=== PATIENT | male | born 1970 | race Caucasian/White ===

== ENCOUNTER 2019-08-04 14:38 | Inpatient (IN) | payer OTHER ==
[~2019-08-04] VITALS: Ht 188 cm; Wt 141.9 kg
[~2019-08-04 14:38] MED LIST: ACET325 PO; ALBU3IS INH; AZIT250 PO; AZIT500 PO; B-1100 MG PO; CEPH500 PO; DILT60 PO; DULERA 200 MCG/13 GM INH; FLUSAL2505 INH; FLUT44OIA INH; FOLI1 PO; FURO40 PO; LORA10 PO; Lisinopril2.5 MG PO; MULVITMIND PO; NAPR220 PO; OXYACE5T PO; PRED20 PO; PROAIR RESPICL90 MCG IH; RXCEPH500 PO; RXOXYACE PO; Ventolin Soln3 ML INH; [UNRECOGNIZED DRUG - REMARK]
[2019-08-04] MEDS ORDERED: MOME220I INH (15:18)
[2019-08-04] MEDS ORDERED: CYCL10 PO (15:18)
[2019-08-04] MEDS ORDERED: TRAM50 PO (15:19)
[2019-08-04 15:25] LABS: BASOPHILS ABSOLUTE AUTO 0.06 K/mm3 (0.00-0.23); BASOPHILS PERCENT AUTO 0 % (0-2); EOSINOPHILS ABSOLUTE AUTO 0.01 K/mm3 (0.00-0.68); EOSINOPHILS PERCENT AUTO 0 % (0-6); Hematocrit 52.5 % (37.0-53.0); Hemoglobin 17.2 g/dL (13.5-17.5); IMMATURE GRAN ABSOLUTE AUTO 0.05 K/mm3 (0.00-0.10); IMMATURE GRAN PERCENT AUTO 0 % (0-1); LYMPHOCYTES ABSOLUTE AUTO 0.85 K/mm3 (0.84-5.20); LYMPHOCYTES PERCENT AUTO 6 % (21-46); MONOCYTES ABSOLUTE AUTO 1.06 K/mm3 (0.16-1.47); MONOCYTES PERCENT AUTO 8 % (4-13); Mean Corpuscular HGB 30.9 pg (26.0-34.0); Mean Corpuscular HGB Conc 32.8 g/dL (31.5-36.5); Mean Corpuscular Volume 94 fL (80-100); Mean Platelet Volume 11.2 fL (9.1-12.4); NEUTROPHILS ABSOLUTE AUTO 11.61 K/mm3 (1.96-9.15); NEUTROPHILS PERCENT AUTO 85 % (41-73); Platelet Count 187 K/mm3 (150-400); RDW Coefficient Variation 13.8 % (11.7-14.2); RDW Standard Deviation 48.3 fL (35.1-46.3); Red Blood Cell Count 5.56 M/mm3 (4.30-5.90); White Blood Cell Count 13.64 K/mm3 (4.00-11.30)
[2019-08-04 15:44] LABS: Alanine Aminotransfer (ALT/SGP 71 U/L (12-78); Albumin, Blood 3.8 g/dL (3.4-5.0); Albumin/Globulin Ratio 1.1 (0.8-1.8); Alk Phos 67 U/L (50-136); Anion Gap 6 mmol/L (6-16); Aspartate Aminotrans (AST/SGOT 52 U/L (12-37); Blood Urea Nitrogen 13 mg/dL (8-24); Bun/Creatinine Ratio 12.3 (12.0-20.0); CO2, Blood 27 mmol/L (21-32); Calcium, Blood 8.8 mg/dL (8.5-10.1); Chloride, Blood 104 mmol/L (98-108); Creatinine, Blood 1.06 mg/dL (0.60-1.20); Globulin, Blood 3.5 g/dL (2.2-4.0); Glomerular Filtration Rate >60 (60-); Glucose, Blood 114 mg/dL (70-99); Potassium, Blood 4.2 mmol/L (3.5-5.5); Sodium, Blood 137 mmol/L (136-145); Total Protein, Blood 7.3 g/dL (6.4-8.2)
[2019-08-04 16:41] LABS: Influenza A Negative (NEGATIVE); Influenza B Negative (NEGATIVE)
[2019-08-04] MEDS ORDERED: MONT10T PO (16:57)
[2019-08-04] MEDS ORDERED: METAXALONE800 M1 PO (16:58)
[2019-08-04 17:29] LABS: International Normalized Ratio 1.05; Prothrombin Time Results 11.2 Sec (9.7-11.5)
--- NOTE | 2019-08-04 18:22 | NUR ---
PT ARRIVED TO ROOM FROM ER VIA STRETCHER. SPOUSE WILL GO HOME TO BRING PTS OWN BIPAP. PT A&O, HR 151 AFLUTTER RVR, OTHER VSS. PT SITTING UP AT EDGE OF BED. LS CLEAR T/O, BTX4. VISITORS AT BEDSIDE. PT IS DIRECTOR MBA BODY TYPE, LARGE RED ARM CUFF USED ON RT FOREARM FOR BP. WILL ADD ANOTHER PUMP FOR NS PSH THROUGH ON CARD GTT. WILL MONITOR AND REPORT TO RUBBER ROLLER GRINDER OPERATOR.
--- NOTE | 2019-08-04 20:00 | NUR ---
ASSUMPTION OF CARE: PT A&O. IN CHAIR AT BEGINNING OF SHIFT. BP STABLE IN THE 110S, HR IN THE 150S. IN AFLUTTER W/RVR. LUNG SOUNDS CLEAR, PT HAS OCC NON PRODUCTIVE COUGH. ON DILT DRIP AT 20MG. HEPARIN AT 13U/KG/HR. PT IS 107KG. POSS CARDIOVERSION IN AM
[2019-08-05 03:28] LABS: Hematocrit 51.1 % (37.0-53.0); Hemoglobin 16.7 g/dL (13.5-17.5); Mean Corpuscular HGB 30.8 pg (26.0-34.0); Mean Corpuscular HGB Conc 32.7 g/dL (31.5-36.5); Mean Corpuscular Volume 94 fL (80-100); Mean Platelet Volume 11.3 fL (9.1-12.4); Platelet Count 167 K/mm3 (150-400); RDW Coefficient Variation 13.9 % (11.7-14.2); RDW Standard Deviation 47.9 fL (35.1-46.3); Red Blood Cell Count 5.42 M/mm3 (4.30-5.90); White Blood Cell Count 12.01 K/mm3 (4.00-11.30)
[2019-08-05 03:52] LABS: Alanine Aminotransfer (ALT/SGP 69 U/L (12-78); Anion Gap 8 mmol/L (6-16); Aspartate Aminotrans (AST/SGOT 53 U/L (12-37); Blood Urea Nitrogen 16 mg/dL (8-24); CO2, Blood 26 mmol/L (21-32); Calcium, Blood 8.4 mg/dL (8.5-10.1); Chloride, Blood 102 mmol/L (98-108); Creatinine, Blood 1.07 mg/dL (0.60-1.20); Glomerular Filtration Rate >60 (60-); Glucose, Blood 109 mg/dL (70-99); Sodium, Blood 136 mmol/L (136-145)
--- NOTE | 2019-08-05 05:10 | NUR ---
SHIFT SUMMARY: PT REMAINS IN AFLUTTER. SBP STABLE. HR AFTER 2ND DOSE OF DIG HR IN LOW 90S. LUNG SOUNDS CLEAR. PT STILL COMPLAINS OF OCC COUGH. PT USING HOME BIPAP. 20G IN R WRIST INF. 18G IN LFA PT PULLED SO A 20G WAS PLACED. CURRENTLY INF. DILT RUNNING AT 15 AND NS TKO INF INTO LFA. HEP AT 15U INF INTO RWRIST. PT CURRENTLY IN BED RESTING COMFORTABLY. BED IN LOWEST POSITION. CALL LIGHT IN REACH. WILL PASS ON REPORT TO ON COMING SHIFT.
--- NOTE | 2019-08-05 07:17 | NUR ---
ASSUMED CARE: PT SITTING UPRIGHT AT SIDE OF BED. CARDIZEM GTT AT 15 MG/HR. AFLUTTER 1TEENS AT THIS TIME. DENIES NEEDS OR CONCERNS.
--- NOTE | 2019-08-05 19:22 | NUR ---
SHIFT SUMMARY: PT CURRENTLY AFLUTTER IN LOW 100S. DENIES CP OR SOB. STATES ANY SOB HE FEELS HE THINKS IS RELATED TO BRONCHITIS. PLAN IS FOR NPO AT [place] FOR POSSIBLE GODFREY IN AM WITH ANESTHESIA ASSISTANCE. NIGHT RN AWARE
[2019-08-06 05:52] LABS: Anion Gap 7 mmol/L (6-16); Blood Urea Nitrogen 17 mg/dL (8-24); Bun/Creatinine Ratio 15.7 (12.0-20.0); CO2, Blood 27 mmol/L (21-32); Calcium, Blood 8.6 mg/dL (8.5-10.1); Chloride, Blood 102 mmol/L (98-108); Creatinine, Blood 1.08 mg/dL (0.60-1.20); Digoxin (Lanoxin) 0.39 ug/mL (0.80-2.00); Glomerular Filtration Rate >60 (60-); Glucose, Blood 104 mg/dL (70-99); Potassium, Blood 4.2 mmol/L (3.5-5.5); Sodium, Blood 136 mmol/L (136-145)
--- NOTE | 2019-08-06 06:18 | NUR ---
PCU NOC SHIFT SUMMARY PATIENT ALERT AND ORIENTED X4 T/O SHIFT. PATIENT REMAINS IN A FLUTTER T/O SHIFT WITH RATE 90-110 - PATIENT DENIES ANY CHEST PAIN OR PRESSURE T/O SHIFT - HEART SOUNDS IRREGULAR - CARDIEZEM GTT REMAINS RUNNING AT 10 ML/HR T/O SHIFT. PATIENT ON ROOM AIR AND USED CPAP WHILE SLEEPING (PATIENT HAS CENTRAL AND OBSTRUCTIVE APNEA). PATIENT HAS BRONCHITIS BEING TREATED WITH ANTIBIOTICS PER EMAR AND ALSO HAS A CARDIOLOGY CONSULT FOR A FLUTTER TREATMENT - POSSIBLE GODFREY THIS AM. PATIENT KEPT NPO SINCE MIDNIGHT. PATIENT SLEPT WELL T/O SHIFT. HEPARIN GTT TITRATED X2 THIS SHIFT PER PHARMACY VIA EMAR. PATIENT PERFERS B/P ON RIGHT FOREARM. NO ACUTE FINDINGS THIS SHIFT, VSS. CALL LIGHT W/I REACH. WILL CONTINUE TO MONITOR AND GIVE REPORT TO DAYSHIFT RN.
--- NOTE | 2019-08-06 07:24 | NUR ---
ASSUMED CARE: PT RESTING QUIETLY IN BED AT THIS TIME. CARDIZEM GTT AT 10MG/HR. HEPARIN GTT RUNNING. NPO SINCE [place]. FAMILY AT BEDSIDE. NO ACUTE NEEDS
--- NOTE | 2019-08-06 10:24 | NUR ---
PT TAKEN TO HEART CENTER VIA WHEEL CHAIR BY STAFF AT THIS TIME.
--- NOTE | 2019-08-06 12:15 | NUR ---
PT RETURNED FROM HEART CENTER. CURRENT RYTHM IS NORMAL SINUS. EKG COMPLETED IN HEART CENTER. CARDIZEM AND HEPARIN GTTS IN PLACE.
--- NOTE | 2019-08-06 18:35 | NUR ---
SHIFT SUMMARY: PT'S HR IN 80S TO 90S NSR AFTER CARDIOVERSION. HAS BEEN ASYMPTOMATIC. CARDIZEM OFF. HAS BEEN RESTING ON CPAP THIS AFTERNOON. FAMILY AT BEDSIDE. NO ACUTE NEEDS OR CONCERNS. PLAN FOR LIFE VEST PRIOR TO DC. LIFE VEST CAME TO SEE IF VEST FIT PT THIS SHIFT.
--- NOTE | 2019-08-07 06:34 | NUR ---
PCU NOC SHIFT SUMMARY PATIENT INDEPENDENT IN ROOM. PATIENT REMAINS ALERT AND ORIENTED X4 T/O SHIFT. PATIENTS HEART RATE NSR IN THE 70-90'S T/O SHIFT - NO EVENS NOTED PER CONSTRUCTION ENGINEERING MANAGER. SPOKE WITH PROVIDER FRANNIE WHO D/C'D PATIENTS HEPARIN AND STARTED HIM ON XARELTO. PATIENT HAS CONTINUOUS COUGH WITH STRINGY SPUTUM PRODUCED. PATIENT ON ROOM AIR; LUNG SOUNDS COARSE TO CLEAR. PATIENT DENIES ANY NEEDS, UP IN THE SHOWER AT THIS TIME. WILL CONTINUE TO MONITOR AND REPORT TO DAYSHIFT RN.
--- NOTE | 2019-08-07 07:17 | NUR ---
ASSUMED CARE: PT UP AND WALKING, TELE SHOWS NSR IN S. STATES HE HAS BEEN COUGHING BLOOD STREAKED SPUTUM. WILL DISCUSS WITH MD. NO FURTHER NEEDS OR CONCERNS.
--- NOTE | 2019-08-07 18:40 | NUR ---
SHIFT SUMMARY: ANA AND RACHEL FROM [employer] HAVE BEEN WORKING ON GETTING INSURANCE APPROVAL FOR PT. CALL RECIEVED THAT PT HAS BEEN APPROVED. DR KATHLEEN AND DR GRIFFIN AWARE. DR KATHLEEN STARTED PT ON ENTERESTO AND METOPROLOL THIS SHIFT AND WANTS TO MONITOR PT OVER NIGHT. FAMILY AWARE AND AGREEABLE. PT HAS REMAINED NSR THIS SHIFT. AMBULATORY IN [place]. VISITORS AT BEDSIDE MOST OF SHIFT.
--- NOTE | 2019-08-08 05:44 | NUR ---
END OF SHIFT SUMMARY NOP ACUTE CHANGES THIS SHIFT. CONTINUES TO DEN Y CP. REMAINS SR. INT HTN, MEDS PER EMAR. PT HAS BEEN WEARING CPAP ALL NIGHT AND HAS BEEN GETTING UP PERIODICALLY TO VOID OR COMPLETE OTHER NEEDS. WILL CONTINUE TO MONITOR UNTIL SHIFT CHANGE.
[2019-08-08 10:18] LABS: Anion Gap 4 mmol/L (6-16); Blood Urea Nitrogen 15 mg/dL (8-24); Bun/Creatinine Ratio 16.9 (12.0-20.0); CO2, Blood 28 mmol/L (21-32); Calcium, Blood 8.9 mg/dL (8.5-10.1); Chloride, Blood 104 mmol/L (98-108); Creatinine, Blood 0.89 mg/dL (0.60-1.20); Glomerular Filtration Rate >60 (60-); Glucose, Blood 125 mg/dL (70-99); Magnesium, Blood 2.2 mg/dL (1.6-2.4); Potassium, Blood 4.3 mmol/L (3.5-5.5); Sodium, Blood 136 mmol/L (136-145)
--- NOTE | 2019-08-08 11:09 | NUR ---
DISCHARGE ANA JOY WAS ABLE TO SUPPLY SAMPLES OF ENTRESTO AND XARELTO FOR THE PT. DR GRIFFIN CALLED FOR DISCHARGE ORDERS. CONTINUE POT.
[2019-08-08] MEDS ORDERED: TORSE20 PO (12:31)
[2019-08-08] MEDS ORDERED: METO25ER PO (12:31)
[2019-08-08] MEDS ORDERED: BENZ100A PO (12:31)
[2019-08-08] MEDS ORDERED: XARELTO20 MG PO (12:32)
[2019-08-08] MEDS ORDERED: ENTRESTO 24 MG1 EACH PO (12:32)
[2019-08-08] MEDS ORDERED: SPIR25 PO (12:33)
--- NOTE | 2019-08-08 13:13 | NUR ---
dischaRGE HOME pT DISCHARGE HOME. SAMPLES GIVEN TO PT. PT REFGUSED W/C OUT. CONTINUE POT.
== END 2019-08-08 13:13 | disposition home or self-care (01) | DRG 308 ==
LOC: ER 14:38 → PCU 14:39
PROVIDERS: Internal Medicine Cardiovascular Disease; Physician Assistant; ADMIT Internal Medicine
PROC: 5A2204Z Restoration of Cardiac Rhythm, Single (ICD-10-PCS; principal; 2019-08-06)
PROC: B24BZZ4 Ultrasonography of Heart with Aorta, Transesophageal (ICD-10-PCS; 2019-08-06)
DX: I48.92 Unspecified atrial flutter (principal); I50.43 Acute on chronic combined systolic (congestive) and diastolic (congestive) heart failure; J45.909 Unspecified asthma, uncomplicated; G47.33 Obstructive sleep apnea (adult) (pediatric); I42.0 Dilated cardiomyopathy; I27.20 Pulmonary hypertension, unspecified; Z68.38 Body mass index [BMI] 38.0-38.9, adult; I11.0 Hypertensive heart disease with heart failure; E66.01 Morbid (severe) obesity due to excess calories
CPT/HCPCS: 36415; 71045; 71046; 80048; 80053; 80162; 83735; 83880; 84145; 84443; 84450; 84460; 84484; 85025; 85027; 85610; 85730; 87804; 92960; 93005; 93010; 93308; 93312; 93321; 93325; 94640; 94760; 94762; 96365; 96366; 96367; 96375; 96376; 99285-25; A9270; J1160; J1644; J1940; J2250; J2704; J7030; J7050

== ENCOUNTER 2019-10-13 17:50 | Emergency (ER) | payer OTHER ==
[~2019-10-13] VITALS: Ht 188 cm; Wt 136.1 kg
[~2019-10-13 17:50] MED LIST changes: +BENZ100A PO; +CYCL10 PO; +ENTRESTO 24 MG1 EACH PO; +METAXALONE800 M1 PO; +METO25ER PO; +MOME220I INH; +MONT10T PO; +SPIR25 PO; +TORSE20 PO; +TRAM50 PO; +XARELTO20 MG PO
[2019-10-13 18:50] LABS: BASOPHILS ABSOLUTE AUTO 0.06 K/mm3 (0.00-0.23); BASOPHILS PERCENT AUTO 1 % (0-2); EOSINOPHILS ABSOLUTE AUTO 0.31 K/mm3 (0.00-0.68); EOSINOPHILS PERCENT AUTO 4 % (0-6); Hematocrit 40.5 % (37.0-53.0); Hemoglobin 13.9 g/dL (13.5-17.5); IMMATURE GRAN ABSOLUTE AUTO 0.03 K/mm3 (0.00-0.10); IMMATURE GRAN PERCENT AUTO 0 % (0-1); LYMPHOCYTES PERCENT AUTO 23 % (21-46); MONOCYTES ABSOLUTE AUTO 0.79 K/mm3 (0.16-1.47); MONOCYTES PERCENT AUTO 10 % (4-13); Mean Corpuscular HGB 29.2 pg (26.0-34.0); Mean Corpuscular HGB Conc 34.3 g/dL (31.5-36.5); Mean Corpuscular Volume 85 fL (80-100); Mean Platelet Volume 10.4 fL (9.1-12.4); NEUTROPHILS ABSOLUTE AUTO 5.25 K/mm3 (1.96-9.15); NEUTROPHILS PERCENT AUTO 63 % (41-73); Platelet Count 175 K/mm3 (150-400); RDW Coefficient Variation 13.1 % (11.7-14.2); RDW Standard Deviation 40.2 fL (35.1-46.3); Red Blood Cell Count 4.76 M/mm3 (4.30-5.90); White Blood Cell Count 8.34 K/mm3 (4.00-11.30)
[2019-10-13 19:05] LABS: International Normalized Ratio 1.08; Prothrombin Time Results 11.5 Sec (9.7-11.5)
[2019-10-13 19:16] LABS: Alanine Aminotransfer (ALT/SGP 115 U/L (12-78); Albumin, Blood 4.1 g/dL (3.4-5.0); Albumin/Globulin Ratio 1.3 (0.8-1.8); Alk Phos 67 U/L (50-136); Anion Gap 4 mmol/L (6-16); Aspartate Aminotrans (AST/SGOT 114 U/L (12-37); Bilirubin, Total 0.3 mg/dL (0.1-1.0); Blood Urea Nitrogen 26 mg/dL (8-24); Bun/Creatinine Ratio 27.7 (12.0-20.0); CO2, Blood 29 mmol/L (21-32); Calcium, Blood 9.1 mg/dL (8.5-10.1); Chloride, Blood 104 mmol/L (98-108); Creatinine, Blood 0.94 mg/dL (0.60-1.20); Globulin, Blood 3.2 g/dL (2.2-4.0); Glomerular Filtration Rate >60 (60-); Glucose, Blood 95 mg/dL (70-99); Potassium, Blood 4.2 mmol/L (3.5-5.5); Sodium, Blood 137 mmol/L (136-145); Total Protein, Blood 7.3 g/dL (6.4-8.2)
== END 2019-10-13 20:55 | disposition home or self-care (01) ==
LOC: ER 17:50
PROVIDERS: Nurse Practitioner
DX: S70.11XA Contusion of right thigh, initial encounter (principal); J45.909 Unspecified asthma, uncomplicated; I50.9 Heart failure, unspecified; Z23 Encounter for immunization; Z79.899 Other long term (current) drug therapy; Z87.01 Personal history of pneumonia (recurrent); V18.0XXA Pedal cycle driver injured in noncollision transport accident in nontraffic accident, initial encounter
CPT/HCPCS: 36415; 76882; 80053; 85025; 85610; 90471; 90714; 99283-25

== ENCOUNTER 2023-09-04 01:51 | Day surgery (SDC) | payer OTHER ==
[2023-09-04 09:40] VITALS: BP 138/93
[2023-09-04 11:20] LABS: BASOPHILS ABSOLUTE AUTO 0.06 K/mm3 (0.00-0.23); BASOPHILS PERCENT AUTO 1 % (0-2); EOSINOPHILS ABSOLUTE AUTO 0.29 K/mm3 (0.00-0.68); EOSINOPHILS PERCENT AUTO 3 % (0-6); IMMATURE GRAN ABSOLUTE AUTO 0.13 K/mm3 (0.00-0.10); IMMATURE GRAN PERCENT AUTO 1 % (0-1); LYMPHOCYTES ABSOLUTE AUTO 1.68 K/mm3 (0.84-5.20); LYMPHOCYTES PERCENT AUTO 18 % (21-46); MONOCYTES ABSOLUTE AUTO 0.51 K/mm3 (0.16-1.47); MONOCYTES PERCENT AUTO 5 % (4-13); Mean Corpuscular HGB 26.3 pg (26.0-34.0); Mean Corpuscular HGB Conc 32.3 g/dL (31.5-36.5); Mean Corpuscular Volume 82 fL (80-100); Mean Platelet Volume 9.8 fL (9.1-12.4); NEUTROPHILS ABSOLUTE AUTO 6.86 K/mm3 (1.96-9.15); NEUTROPHILS PERCENT AUTO 72 % (41-73); Platelet Count 323 K/mm3 (150-400); RDW Coefficient Variation 14.7 % (11.7-14.2); RDW Standard Deviation 42.1 fL (35.1-46.3); White Blood Cell Count 9.53 K/mm3 (4.00-11.30)
[2023-09-04 11:43] LABS: Albumin, Blood 3.9 g/dL (3.4-5.0); Bilirubin, Total 0.4 mg/dL (0.1-1.0); Bun/Creatinine Ratio 18.3 (12.0-20.0); C-REACTIVE PROTEIN, EXT RANGE 1.03 mg/dL (0.000-0.300); Calcium, Blood 9.2 mg/dL (8.5-10.1); Creatinine, Blood 1.09 mg/dL (0.60-1.20); Globulin, Blood 3.8 g/dL (2.2-4.0); Potassium, Blood 3.9 mmol/L (3.5-5.5); Total Protein, Blood 7.7 g/dL (6.4-8.2)
--- NOTE | 2023-09-04 14:31 | NUR ---
LABS FAXED TO [facility] AND ORDERING PHYSICIAN'S OFFICE.
== END 2023-09-04 09:57 | disposition home or self-care (01) ==
LOC: ATC 01:51
DX: T81.49XA Infection following a procedure, other surgical site, initial encounter (principal); M43.22 Fusion of spine, cervical region; Z79.899 Other long term (current) drug therapy
CPT/HCPCS: 36592; 80053; 85025; 85651; 86140

== ENCOUNTER 2023-09-05 00:38 | Day surgery (SDC) | payer OTHER | END 2023-09-05 22:54 | disposition home or self-care (01) | LOC: WOUND 00:38 | DX: T81.31XD Disruption of external operation (surgical) wound, not elsewhere classified, subsequent encounter (principal); S11.90XD Unspecified open wound of unspecified part of neck, subsequent encounter; I11.0 Hypertensive heart disease with heart failure; I50.9 Heart failure, unspecified; I48.91 Unspecified atrial fibrillation; J44.9 Chronic obstructive pulmonary disease, unspecified ==

== ENCOUNTER 2023-09-08 07:48 | Day surgery (SDC) | payer OTHER | END 2023-09-08 23:41 | disposition home or self-care (01) | LOC: WOUND 07:48 | DX: T81.31XA Disruption of external operation (surgical) wound, not elsewhere classified, initial encounter (principal) ==

== ENCOUNTER 2023-09-10 00:17 | Day surgery (SDC) | payer OTHER | END 2023-09-10 22:35 | disposition home or self-care (01) | LOC: WOUND 00:17 | DX: T81.31XA Disruption of external operation (surgical) wound, not elsewhere classified, initial encounter (principal) ==

== ENCOUNTER 2023-09-12 01:17 | Day surgery (SDC) | payer OTHER ==
[2023-09-12 08:43] VITALS: BP 140/80
[2023-09-12 09:36] LABS: BASOPHILS ABSOLUTE AUTO 0.06 K/mm3 (0.00-0.23); BASOPHILS PERCENT AUTO 1 % (0-2); EOSINOPHILS ABSOLUTE AUTO 0.27 K/mm3 (0.00-0.68); EOSINOPHILS PERCENT AUTO 5 % (0-6); Hematocrit 31.6 % (37.0-53.0); Hemoglobin 10.2 g/dL (13.5-17.5); IMMATURE GRAN ABSOLUTE AUTO 0.01 K/mm3 (0.00-0.10); IMMATURE GRAN PERCENT AUTO 0 % (0-1); LYMPHOCYTES ABSOLUTE AUTO 1.26 K/mm3 (0.84-5.20); LYMPHOCYTES PERCENT AUTO 24 % (21-46); MONOCYTES PERCENT AUTO 8 % (4-13); Mean Corpuscular HGB 26.8 pg (26.0-34.0); Mean Corpuscular HGB Conc 32.3 g/dL (31.5-36.5); Mean Corpuscular Volume 83 fL (80-100); Mean Platelet Volume 9.9 fL (9.1-12.4); NEUTROPHILS ABSOLUTE AUTO 3.32 K/mm3 (1.96-9.15); NEUTROPHILS PERCENT AUTO 62 % (41-73); Platelet Count 262 K/mm3 (150-400); RDW Coefficient Variation 16.2 % (11.7-14.2); RDW Standard Deviation 48.1 fL (35.1-46.3); Red Blood Cell Count 3.81 M/mm3 (4.30-5.90); White Blood Cell Count 5.32 K/mm3 (4.00-11.30)
[2023-09-12 09:55] LABS: C-REACTIVE PROTEIN, EXT RANGE 0.973 mg/dL (0.000-0.300)
[2023-09-12 09:57] LABS: Albumin, Blood 3.6 g/dL (3.4-5.0); Bilirubin, Total 0.3 mg/dL (0.1-1.0); Bun/Creatinine Ratio 17.5 (12.0-20.0); Creatinine, Blood 0.97 mg/dL (0.60-1.20); Globulin, Blood 3.6 g/dL (2.2-4.0); Potassium, Blood 4.1 mmol/L (3.5-5.5); Total Protein, Blood 7.2 g/dL (6.4-8.2)
== END 2023-09-12 08:51 | disposition home or self-care (01) ==
LOC: ATC 01:17
DX: M43.22 Fusion of spine, cervical region (principal)
CPT/HCPCS: 36592; 80053; 85025; 85651; 86140

== ENCOUNTER 2023-09-12 01:25 | Day surgery (SDC) | payer OTHER | END 2023-09-12 22:57 | disposition home or self-care (01) | LOC: WOUND 01:25 | DX: T81.31XD Disruption of external operation (surgical) wound, not elsewhere classified, subsequent encounter (principal); S11.80XD Unspecified open wound of other specified part of neck, subsequent encounter; I50.9 Heart failure, unspecified; I48.91 Unspecified atrial fibrillation; J44.9 Chronic obstructive pulmonary disease, unspecified; I11.0 Hypertensive heart disease with heart failure ==

== ENCOUNTER 2023-09-15 08:37 | Day surgery (SDC) | payer OTHER | END 2023-09-15 22:38 | disposition home or self-care (01) | LOC: WOUND 08:37 | DX: T81.31XA Disruption of external operation (surgical) wound, not elsewhere classified, initial encounter (principal) ==

== ENCOUNTER 2023-09-17 05:35 | Day surgery (SDC) | payer OTHER | END 2023-09-17 22:53 | disposition home or self-care (01) | LOC: WOUND 05:35 | DX: T81.31XA Disruption of external operation (surgical) wound, not elsewhere classified, initial encounter (principal); Y83.8 Other surgical procedures as the cause of abnormal reaction of the patient, or of later complication, without mention of misadventure at the time of the procedure ==

== ENCOUNTER 2023-09-19 05:10 | Day surgery (SDC) | payer OTHER | END 2023-09-19 23:00 | disposition home or self-care (01) | LOC: WOUND 05:10 | DX: T81.31XA Disruption of external operation (surgical) wound, not elsewhere classified, initial encounter (principal); Y83.8 Other surgical procedures as the cause of abnormal reaction of the patient, or of later complication, without mention of misadventure at the time of the procedure ==

== ENCOUNTER 2023-09-22 08:00 | Day surgery (SDC) | payer OTHER | END 2023-09-23 22:34 | disposition home or self-care (01) | LOC: WOUND 08:00 | DX: T81.31XD Disruption of external operation (surgical) wound, not elsewhere classified, subsequent encounter (principal); I11.0 Hypertensive heart disease with heart failure; I50.9 Heart failure, unspecified; I48.91 Unspecified atrial fibrillation; J44.9 Chronic obstructive pulmonary disease, unspecified; S11.90XD Unspecified open wound of unspecified part of neck, subsequent encounter ==

== ENCOUNTER 2023-11-14 04:26 | Day surgery (SDC) | payer OTHER | END 2023-11-14 22:48 | disposition home or self-care (01) | LOC: WOUND 04:26 | DX: T81.31XD Disruption of external operation (surgical) wound, not elsewhere classified, subsequent encounter (principal); I11.0 Hypertensive heart disease with heart failure; I50.9 Heart failure, unspecified; I48.91 Unspecified atrial fibrillation; J44.9 Chronic obstructive pulmonary disease, unspecified; Y83.8 Other surgical procedures as the cause of abnormal reaction of the patient, or of later complication, without mention of misadventure at the time of the procedure | CPT/HCPCS: A6213 ==

== ENCOUNTER 2023-12-05 05:11 | Day surgery (SDC) | payer OTHER | END 2023-12-05 22:36 | disposition home or self-care (01) | LOC: WOUND 05:11 | DX: T81.31XD Disruption of external operation (surgical) wound, not elsewhere classified, subsequent encounter (principal); Y83.8 Other surgical procedures as the cause of abnormal reaction of the patient, or of later complication, without mention of misadventure at the time of the procedure; I11.0 Hypertensive heart disease with heart failure; I50.9 Heart failure, unspecified; I48.91 Unspecified atrial fibrillation; J44.9 Chronic obstructive pulmonary disease, unspecified ==